=== PATIENT | female | born 1975 | race Caucasian/White ===

== ENCOUNTER → 2021-04-07 | Day surgery (SDC) | payer MEDICARE, OTHER ==
[~2021-04-07] VITALS: Ht 157.5 cm; Wt 106.6 kg
[~2021-04-07] MED LIST: AMBIEN10 MG PO; CEFDINIR300 MG PO; EAR DROPS AD; EFFEXOR XR150 MG PO; EFFEXOR XR37.5 MG PO; NAPROXEN500 MG PO; NORCO 5-325 TA1 EACH PO; PERCOCET 5-3251 EACH PO; PHENERGAN25 M1 PO; PROTONIX 40MG T40 MG PO; ROBAXIN500 MG PO; SEROQUEL 100MG100 MG PO; SYNTHROID125 MCG PO; VENTOLIN HFA IN18 GM INH; VITAMIN D50000 UNIT PO; ZANAFLEX4 M1 PO; ZANTAC150 MG PO; ZOFRAN4 MG PO
[2021-04-07 10:19] LABS: HCT 41.7 % (37.0-47.0); HGB 13.7 g/dl (12.5-16.0); MCH 29.7 pg (25.0-31.0); MCHC 32.9 g/dL (32.0-36.0); MCV 90.3 fL (78.0-100.0); MPV 9.1 fL (6.0-9.5); RBC 4.62 M/uL (4.20-5.40); RDW 13.7 % (11.5-14.0); WBC 10.1 K/uL (4.0-10.5)
[2021-04-07 10:53] LABS: ALBUMIN 3.4 g/dL (3.4-5.0); BILIRUBIN - TOTAL 0.2 mg/dL (0.2-1.0); BUN/CREAT RATIO (CALC) 14.9 RATIO; CREATININE 0.67 mg/dL (0.51-0.95); POTASSIUM 4.3 mmol/L (3.5-5.1); TOTAL PROTEIN 6.4 g/dL (6.4-8.2)
== END | disposition home or self-care (01) ==
LOC: FAS 09:10
PROVIDERS: Orthopaedic Surgery
DX: G56.03 Carpal tunnel syndrome, bilateral upper limbs (principal); M18.12 Unilateral primary osteoarthritis of first carpometacarpal joint, left hand; G56.23 Lesion of ulnar nerve, bilateral upper limbs; E07.9 Disorder of thyroid, unspecified; Z86.718 Personal history of other venous thrombosis and embolism
CPT/HCPCS: 36415; 71045; 80053; 93005; J1040; J1170; J2250; J2405; J2704; J7120